=== PATIENT | female | born 1995 | race African-American/Black ===

== ENCOUNTER 2016-04-30 15:18 | Inpatient (IN) | payer OTHER, MEDICAID ==
[2016-04-30 17:57] LABS: Hematocrit 33 % (35-47); Hemoglobin 10.5 g/dl (12.0-16.0); Mean Corpuscular HGB Conc 32 g/dl (31-36); Mean Corpuscular Hemoglobin 25 pg (27-31); Mean Corpuscular Volume 78 fL (80-97); Mean Platelet Volume 9 um3 (7.4-10.4); Red Blood Count 4.27 10^6/ul (4.0-5.4); Red Cell Distribution Width 16 % (10.5-15); White Blood Count 10.1 10^3/ul (3.5-10.8)
[2016-04-30 18:08] LABS: Albumin 3.7 g/dL (3.2-5.2); BUN/Creatinine Ratio 8.7 (8-20); Calcium 9.7 mg/dL (8.6-10.3); EGFR African American 225.1 (>60); Globulin 3.1 g/dL (2-4); Potassium 3.5 mmol/L (3.5-5.0); Total Bilirubin 0.5 mg/dL (0.2-1.0); Total Protein 6.8 g/dL (6.4-8.9); Uric Acid 4.2 mg/dL (2.3-6.6)
[2016-04-30] MEDS ORDERED: Dinoprostone* 10 MG VAG.SUPP VAGINAL ONE (20:57)
[2016-04-30] MEDS: RANITIDINE 150 MG PO SCH (21:40)
[2016-05-01] MEDS ORDERED: Oxytocin in LR* 20 UNITS/1,000 ML BAG IVPB SCH (11:00)
[2016-05-01] MEDS ORDERED: OBEPIDURAL* 250 ML ONE (18:25)
[2016-05-01] MEDS ORDERED: Sodium Citrate/Citric Acid* 15 ML UDC PO PRN (19:09)
[2016-05-01] MEDS ORDERED: Phenylephrine IV* 40 MCG/ML 10 ML SYRINGE IV PUSH PRN ×2 (19:09)
[2016-05-01] MEDS ORDERED: Famotidine TAB* 20 MG PO PRN (19:09)
[2016-05-01] MEDS ORDERED: OBEPIDURAL* 250 ML EPIDURAL SCH (20:00)
[2016-05-01] MEDS: Famotidine TAB* 20 MG PO SCH (20:37)
[2016-05-01] MEDS ORDERED: Ondansetron INJ* 2 MG/ML VIAL ONE (21:41)
[2016-05-01] MEDS ORDERED: Ondansetron INJ* 2 MG/ML VIAL IV ONE (21:43)
[2016-05-02] MEDS ORDERED: Dibucaine 1% 28.35 GM TUBE PR PRN (00:37)
[2016-05-02] MEDS: Ibuprofen TAB* 600 MG PO PRN ×4 (03:24→22:16)
[2016-05-02] MEDS: Witch Hazel PAD* JAR TOPICAL PRN (03:24)
[2016-05-02] MEDS: Acetaminophen TAB* 325 MG PO PRN ×2 (07:26→14:58)
[2016-05-02] MEDS: Docusate CAP* 100 MG PO SCH ×3 (09:34→20:32)
[2016-05-02] MEDS: Famotidine TAB* 20 MG PO SCH ×2 (20:32)
[2016-05-03] MEDS: Acetaminophen TAB* 325 MG PO PRN ×2 (04:03→08:40)
[2016-05-03] MEDS: Ibuprofen TAB* 600 MG PO PRN ×3 (04:04→22:14)
[2016-05-03 08:20] LABS: Hematocrit 27 % (35-47); Hemoglobin 8.5 g/dl (12.0-16.0); Mean Corpuscular HGB Conc 32 g/dl (31-36); Mean Corpuscular Hemoglobin 25 pg (27-31); Mean Corpuscular Volume 77 fL (80-97); Mean Platelet Volume 8 um3 (7.4-10.4); Red Blood Count 3.42 10^6/ul (4.0-5.4); Red Cell Distribution Width 16 % (10.5-15); White Blood Count 12.3 10^3/ul (3.5-10.8)
[2016-05-03] MEDS: Docusate CAP* 100 MG PO SCH ×3 (08:40→22:13)
[2016-05-03] MEDS: Ferrous Gluconate TAB* 324 MG TAB PO SCH ×2 (11:21→22:13)
[2016-05-03] MEDS: Famotidine TAB* 20 MG PO SCH ×2 (11:22→22:14)
[2016-05-03] MEDS: RANITIDINE 150 MG PO SCH (21:01)
[2016-05-03] MEDS: Witch Hazel PAD* JAR TOPICAL PRN (22:13)
[2016-05-04] MEDS: Acetaminophen TAB* 325 MG PO PRN (03:19)
[2016-05-04] MEDS: Ibuprofen TAB* 600 MG PO PRN ×2 (06:45→13:59)
[2016-05-04] MEDS: Docusate CAP* 100 MG PO SCH ×2 (09:34→13:58)
[2016-05-04] MEDS: Famotidine TAB* 20 MG PO SCH (09:34)
[2016-05-04] MEDS: Ferrous Gluconate TAB* 324 MG TAB PO SCH (09:34)
[2016-05-04 10:05] VITALS: BP 157/56
[2016-05-04] MEDS: Witch Hazel PAD* JAR TOPICAL PRN (14:13)
== END 2016-05-04 14:50 | disposition home or self-care (01) | DRG 560 ==
LOC: MCHOBOUT 15:18 → MCHOB 16:25
PROVIDERS: ADMIT Midwife; ATTEND Midwife
PROC: 10E0XZZ Delivery of Products of Conception, External Approach (ICD-10-PCS; principal; 2016-05-02)
PROC: 3E033VJ Introduction of Other Hormone into Peripheral Vein, Percutaneous Approach (ICD-10-PCS; 2016-05-02)
PROC: 0HQ9XZZ Repair Perineum Skin, External Approach (ICD-10-PCS; 2016-05-02)
PROC: 10907ZC Drainage of Amniotic Fluid, Therapeutic from Products of Conception, Via Natural or Artificial Opening (ICD-10-PCS; 2016-05-02)
DX: O48.0 Post-term pregnancy (principal); O99.344 Other mental disorders complicating childbirth; D64.9 Anemia, unspecified; Z3A.41 41 weeks gestation of pregnancy; O70.0 First degree perineal laceration during delivery; O90.81 Anemia of the puerperium; O13.4 Gestational [pregnancy-induced] hypertension without significant proteinuria, complicating childbirth; Z37.0 Single live birth
CPT/HCPCS: 36415; 80053; 81002; 84550; 85025; 86850; 86900; 86901; A9270-GY; J2405

== ENCOUNTER 2016-08-01 15:09 | Emergency (ER) | payer MEDICAID, OTHER ==
[2016-08-01 15:31] VITALS: BP 129/67
--- NOTE | 2016-08-01 15:51 | UC ---
Pediatric Resp HPI - History Of Current Complaint Chief Complaint: UCRespiratory Stated Complaint: COUGH Time Seen by Provider: 08/01/16 15:49 - Allergies/Home Medications Allergies/Adverse Reactions: Allergies Allergy/AdvReac Type Severity Reaction Status Date / Time oranges Allergy Swelling Uncoded 04/30/16 17:14 Of Face,Lips,& Throat Past Medical History Respiratory History: No: Asthma - Family History Family History: Heroine dependency Physical Exam Vital Signs: Initial Vital Signs Temp 98.1 F 08/01/16 15:26 Pulse 89 08/01/16 15:26 Resp 18 08/01/16 15:26 BP 129/67 08/01/16 15:26 Pulse Ox 100 08/01/16 15:26
[2016-08-01] MEDS ORDERED: Ibuprofen TAB* 600 MG PO ONE (15:58)
--- NOTE | 2016-08-01 16:05 | UC ---
Respiratory Complaint HPI - HPI Summary HPI Summary: cough and sore throat chest hurts to cough - History of Current Complaint Hx Obtained From: Patient Hx Last Menstrual Period: 07/25/16 miscarriage ?: No Onset/Duration: Gradual Onset, Lasting Days Timing: Constant Severity Initially: Moderate Severity Currently: Moderate Pain Intensity: 5 Pain Scale Used: 0-10 Numeric Character: Cough: Nonproductive Aggravating Factors: Nothing Alleviating Factors: Nothing Associated Signs And Symptoms: Positive: Pleuritic Chest Pain, URI <Edelmira Cruz - Last Filed: 08/01/16 16:49> <Qian Soto - Last Filed: 08/01/16 17:33> - History of Current Complaint Chief Complaint: UCRespiratory Stated Complaint: COUGH Time Seen by Provider: 08/01/16 15:49 - Allergies/Home Medications Allergies/Adverse Reactions: Allergies Allergy/AdvReac Type Severity Reaction Status Date / Time oranges Allergy Swelling Uncoded 04/30/16 17:14 Of Face,Lips,& Throat PMH/Surg Hx/FS Hx/Imm Hx Previously Healthy: No Cardiovascular History Of: Reports: Cardiac Disorders - "Murmur in childhood" Respiratory History Of: Denies: Asthma Psychological History Of: Reports: Anxiety, Depression, Bipolar Disorder - Not currently taking medications Other History Of: Negative For: Anticoagulant Therapy - Surgical History Surgical History: None - Family History Known Family History: Positive: Unknown - pt denies knowledge of family medical history Family History: Heroine dependency - Social History Occupation: Employed Full-time Lives: With Family Alcohol Use: Weekly Substance Use Type: None Smoking Status (MU): Heavy Every Day Tobacco Smoker Type: Cigarettes Have You Smoked in the Last Year: Yes Household Exposure Type: Cigarettes Cessation Counseling: Counseled 3+Min - 10 Min - Immunization History Most Recent Influenza Vaccination: none this year Most Recent Tetanus Shot: 04/2015 Most Recent Pneumonia Vaccination: never <Edelmira Cruz - Last Filed: 08/01/16 16:49> Review of Systems Constitutional: Negative Skin: Negative Eyes: Negative ENT: Sore Throat Respiratory: Cough Cardiovascular: Negative Gastrointestinal: Negative Genitourinary: Negative Motor: Negative Neurovascular: Negative Musculoskeletal: Negative Neurological: Negative Psychological: Negative All Other Systems Reviewed And Are Negative: Yes <Edelmira Cruz - Last Filed: 08/01/16 16:49> Physical Exam Triage Information Reviewed: Yes Appearance: Well-Appearing, No Pain Distress, Well-Nourished Vital Signs: Initial Vital Signs Temp 98.1 F 08/01/16 15:26 Pulse 89 08/01/16 15:26 Resp 18 08/01/16 15:26 BP 129/67 08/01/16 15:26 Pulse Ox 100 08/01/16 15:26 Vital Signs Reviewed: Yes Eye Exam: Normal Eyes: Positive: Conjunctiva Clear ENT Exam: Normal ENT: Positive: Normal ENT inspection, Hearing grossly normal, Pharyngeal erythema, TMs normal. Negative: Nasal congestion, Nasal drainage, Tonsillar swelling, Tonsillar exudate, Trismus, Muffled/hoarse voice Dental Exam: Normal Neck exam: Normal Neck: Positive: Supple, Nontender, No Lymphadenopathy Respiratory Exam: Normal Respiratory: Positive: Chest non-tender, Lungs clear, Normal breath sounds, No respiratory distress, No accessory muscle use Cardiovascular Exam: Normal Cardiovascular: Positive: RRR, No Murmur, Pulses Normal, Brisk Capillary Refill Musculoskeletal Exam: Normal Musculoskeletal: Positive: Strength Intact, ROM Intact, No Edema Neurological Exam: Normal Neurological: Positive: Alert, Muscle Tone Normal Psychological Exam: Normal Skin Exam: Normal <Edelmira Cruz - Last Filed: 08/01/16 16:49> Vital Signs: Initial Vital Signs Temp 98.1 F 08/01/16 15:26 Pulse 89 08/01/16 15:26 Resp 18 08/01/16 15:26 BP 129/67 08/01/16 15:26 Pulse Ox 100 08/01/16 15:26 <Qian Soto - Last Filed: 08/01/16 17:33> Diagnostic Evaluation - Laboratory O2 Sat by Pulse Oximetry: 100 Diagnostic Studies Comment: RST (-) <Edelmira Cruz - Last Filed: 08/01/16 16:49> Respiratory Course/Dx - Course Course Of Treatment: albuterol, prednisone, zithromax, smoking cesation information, education and support, referral for pcp follow up - Differential Dx/Diagnosis Differential Diagnosis/HQI/PQRI: Bronchitis, Influenza, Laryngitis, Lower Resp Infection, Sinusitis Provider Diagnoses: Acute exacerbation of asthma, bronchititis, nicotine dependant <Edelmira Cruz - Last Filed: 08/01/16 16:49> Discharge <Edelmira Cruz - Last Filed: 08/01/16 16:49> <Qian Soto - Last Filed: 08/01/16 17:33> - Discharge Plan Condition: Stable Disposition: HOME Prescriptions: Albuterol HFA INHALER* [Ventolin HFA Inhaler*] 2 puff INH Q4H PRN #1 mdi PRN Reason: cough/chest tightness Azithromycin TAB* [Zithromax TAB (Z-JUAN A) 250 mg #6 tabs] 2 tab PO .TODAY, THEN 1 DAILY #1 juan a Spacer/Aerosol-Holding Chamber [Aerochamber Plus] 1 mis XX SEE INSTRUCTIONS #1 mis predniSONE TAB* [Deltasone TAB*] 10 mg PO DAILY #20 tab Patient Education Materials: How to Stop Smoking (ED), Acute Bronchitis (ED), Bronchospasm (ED) Forms: *Work Release Referrals: [facility] – [place] PH[facility]IAN REFERRAL [Outside] - 1 Week No Primary Care Phys,NOPCP [Primary Care Provider] - Attestation Statement User Type: Provider - I was available for consult. This patient was seen by the ELIDIA. The patient was not presented to, seen by, or examined by me. - Al <Qian Soto - Last Filed: 08/01/16 17:33>
== END 2016-08-01 16:43 | disposition home or self-care (01) ==
LOC: UCEAST 15:09
DX: J45.901 Unspecified asthma with (acute) exacerbation (principal); F17.210 Nicotine dependence, cigarettes, uncomplicated; J20.9 Acute bronchitis, unspecified
CPT/HCPCS: 87651; 99212; A9270-GY; G0463

== ENCOUNTER 2017-01-02 19:35 | Emergency (ER) | payer OTHER ==
[2017-01-02 19:45] VITALS: BP 144/66
[2017-01-02] MEDS ORDERED: Albuterol/Ipratropium NEB.SOL* Albuterol 2.5 MG/Ipratropium 0.5 MG 3 ML INH ONE (19:51)
[2017-01-02] MEDS ORDERED: Amoxicillin/Clavulanate TAB* 875 MG PO ONE (19:51)
[2017-01-02] MEDS ORDERED: GuaiFENesin DM* 5 ML UDC PO ONE (19:52)
[2017-01-02] MEDS ORDERED: predniSONE TAB* 20 MG PO ONE (19:52)
[2017-01-02] MEDS ORDERED: guaiFENesin LIQ* 100 MG/5 ML UDC PO ONE (20:06)
--- NOTE | 2017-01-06 16:37 | UC ---
Respiratory Complaint HPI - HPI Summary HPI Summary: 21 year old female presents with cough, chest congestion and post nasal drip. - History of Current Complaint Chief Complaint: UCRespiratory Stated Complaint: URI Time Seen by Provider: 01/02/17 19:47 Hx Obtained From: Patient Hx Last Menstrual Period: no regular period Onset/Duration: Sudden Onset Severity Initially: Moderate Severity Currently: Moderate Pain Intensity: 2 Pain Scale Used: Adult Non Verbal - Allergies/Home Medications Allergies/Adverse Reactions: Allergies Allergy/AdvReac Type Severity Reaction Status Date / Time oranges Allergy Swelling Uncoded 04/30/16 17:14 Of Face,Lips,& Throat Home Medications: Home Medications Medroxyprogesterone Acetate (C [Depo-Provera Contraceptiv] 150 mg IM 01/02/17 [ History] PMH/Surg Hx/FS Hx/Imm Hx Previously Healthy: Yes Other History Of: Negative For: Anticoagulant Therapy - Surgical History Surgical History: None - Family History Known Family History: Positive: Unknown - pt denies knowledge of family medical history Family History: Heroine dependency - Social History Alcohol Use: Weekly Substance Use Type: None Smoking Status (MU): Heavy Every Day Tobacco Smoker Type: Cigarettes Have You Smoked in the Last Year: Yes Household Exposure Type: Cigarettes - Immunization History Most Recent Influenza Vaccination: none this year Most Recent Tetanus Shot: 04/2015 Most Recent Pneumonia Vaccination: never Review of Systems Constitutional: Negative Skin: Negative Eyes: Negative ENT: Sore Throat, Nasal Discharge, Sinus Congestion, Sinus Pain/Tenderness Respiratory: Negative Cardiovascular: Negative Gastrointestinal: Negative Genitourinary: Negative Motor: Negative Neurovascular: Negative Musculoskeletal: Negative Neurological: Negative Psychological: Negative All Other Systems Reviewed And Are Negative: Yes Physical Exam Triage Information Reviewed: Yes Vital Signs: Initial Vital Signs Temp 37.0 C 01/02/17 19:42 Pulse 89 01/02/17 19:42 Resp 18 01/02/17 19:42 BP 144/66 01/02/17 19:42 Pulse Ox 100 01/02/17 19:42 Vital Signs Reviewed: Yes Eye Exam: Normal ENT: Positive: Pharyngeal erythema, Nasal congestion, Nasal drainage Dental Exam: Normal Neck exam: Normal Neck: Positive: 1 Respiratory Exam: Normal Cardiovascular Exam: Normal Abdominal Exam: Normal Musculoskeletal Exam: Normal Neurological Exam: Normal Psychological Exam: Normal Skin Exam: Normal UC Diagnostic Evaluation - Laboratory O2 Sat by Pulse Oximetry: 100 Respiratory Course/Dx - Differential Dx/Diagnosis Provider Diagnoses: bronchitis. sinus congestion. post nasal drip Discharge - Discharge Plan Condition: Stable Disposition: HOME Prescriptions: Albuterol HFA INHALER* [Ventolin HFA Inhaler*] 1 puff INH Q6H PRN #1 mdi PRN Reason: Wheezing Amoxicillin/Clavulanate TAB* [Augmentin TAB 875*] 875 mg PO BID #20 tab Methylprednisolone [Medrol Dosepak 4 MG*] 4 mg PO .SEE JUAN A INSTRUCTION #21 tab guaiFENesin/CODIEN 100MG-10MG* [Robitussin AC 100Mg-10Mg*] 5 ml PO Q8H PRN #120 ml MDD 15 ml PRN Reason: Cough Patient Education Materials: Acute Cough (ED) Forms: *Work Release Referrals: No Primary Care Phys,NOPCP [Primary Care Provider] -
== END 2017-01-02 21:05 | disposition home or self-care (01) ==
LOC: UCEAST 19:35
DX: J40 Bronchitis, not specified as acute or chronic (principal); R09.81 Nasal congestion; R09.82 Postnasal drip; F17.210 Nicotine dependence, cigarettes, uncomplicated
CPT/HCPCS: 99213; A9270-GY; G0463; J7512

== ENCOUNTER 2017-03-05 16:47 | Emergency (ER) | payer MEDICAID, OTHER ==
[2017-03-05] MEDS ORDERED: Acetaminophen TAB* 325 MG PO ONE (17:12)
--- NOTE | 2017-03-05 19:03 | RAD ---
INDICATION: Left hand injury COMPARISON: None TECHNIQUE: AP, lateral, and oblique views were obtained. FINDINGS: The bony structures, joint spaces, and soft tissues are normal for age. IMPRESSION: NEGATIVE EXAMINATION .
--- NOTE | 2017-03-05 19:04 | RAD ---
INDICATION: Left wrist injury COMPARISON: None TECHNIQUE: AP, lateral, and oblique views were obtained. FINDINGS: The bony structures, joint spaces, and soft tissues are normal for age. IMPRESSION: NEGATIVE EXAMINATION.
[2017-03-05 19:25] VITALS: BP 122/73
--- NOTE | 2017-03-05 19:55 | ED ---
Luis Angel Villagomez Stephanie, scribed for Roger Epps MD on 03/05/17 at 1719 . Complex/Multi-Sys Presentation - HPI Summary HPI Summary: Pt is a 21 y/o F presenting to the ED with c/o hand pain, head pain and abdominal cramping. The pain in her hand and back of head began post-fall. The pt reports her abdominal pain began about 1 week ago and there was an incident where she released one large clump of dark red blood. Pt denies numbness and weakness in her thumb. - History Of Current Complaint Chief Complaint: EDExtremityUpper Time Seen by Provider: 03/05/17 17:07 Hx Obtained From: Patient Onset/Duration: Lasting Weeks - 1, Still Present Associated Signs And Symptoms: Positive: Abdominal Pain, Other - head and hand pain. - Allergies/Home Medications Allergies/Adverse Reactions: Allergies Allergy/AdvReac Type Severity Reaction Status Date / Time oranges Allergy Swelling Uncoded 04/30/16 17:14 Of Face,Lips,& Throat PMH/Surg Hx/FS Hx/Imm Hx Endocrine/Hematology History: Denies: Hx Anticoagulant Therapy, Hx Blood Disorders Respiratory History: Denies: Hx Asthma History: Reports: Other Problems/Disorders - chlamydia Sensory History: Reports: Hx Contacts or Glasses Opthamlomology History: Reports: Hx Contacts or Glasses Psychiatric History: Reports: Hx Anxiety, Hx Attention Deficit Hyperactivity Disorder, Hx Depression, Hx Bipolar Disorder - Not currently taking medications Denies: Hx Eating Disorder, Hx of Violent Episodes Against Others - Immunization History Date of Tetanus Vaccine: Up to Date Infectious Disease History: No Infectious Disease History: Denies: History Other Infectious Disease, Traveled Outside the [place] in Last 30 Days - Family History Known Family History: Positive: Unknown - pt denies knowledge of family medical history Family History: Heroine dependency - Social History Alcohol Use: Weekly Hx Substance Use: No Substance Use Type: Reports: None Hx Tobacco Use: Yes Smoking Status (MU): Heavy Every Day Tobacco Smoker Type: Cigarettes Have You Smoked in the Last Year: Yes Review of Systems Negative: Fever Positive: Abdominal Pain Positive: Other - head and hand pain All Other Systems Reviewed And Are Negative: Yes Physical Exam - Summary Physical Exam Summary: Appearance: Well appearing, no pain distress Skin: warm, dry, reflects adequate perfusion Head/face: normal Eyes: EOMI, JOHNNY ENT: normal Neck: supple, Tenderness in R paracervicle muscle Respiratory: CTA, breath sounds present Cardiovascular: RRR, pulses symmetrical Abdomen: non-tender, soft Bowel: present Musculoskeletal: normal, strength/ROM intact Neuro: normal, sensory motor intact, A&Ox3 Extremity:Pain without swelling at the base of the left thumb. Nml intrinsic function of thumb Triage Information Reviewed: Yes Vital Signs On Initial Exam: Initial Vitals Temp Pulse Resp BP Pulse Ox 97.4 F 95 16 146/78 100 03/05/17 16:52 03/05/17 16:52 03/05/17 16:52 03/05/17 16:52 03/05/17 16:52 Vital Signs Reviewed: Yes Procedures - Procedure Summary Procedure Summary: Splint note: A pre-made velcro thumb spica splint was applied by me. Extremity neurovascularly intact. Tolerated well without complications. Diagnostics - Vital Signs Vital Signs Temp Pulse Resp BP Pulse Ox 03/05/17 16:52 97.4 F 95 16 146/78 100 - Laboratory Lab Results: Lab Results 03/05/17 Range/Units 17:20 Beta HCG, Quant < 0.60 mIU/mL Lab Statement: Any lab studies that have been ordered have been reviewed, and results considered in the medical decision making process. - Radiology wrist XRay Xray Interpretation: No Acute Changes - NEGATIVE EXAMINATION Radiology Interpretation Completed By: Radiologist XRay hand Radiology Interpretation Completed By: Radiologist - NEGATIVE EXAMINATION Complex Multi-Symp Course/Dx Course Of Treatment: neg. Xrays neg. Splint applied by me. - Diagnoses Provider Diagnoses: Wrist sprain, Hand sprain Discharge - Discharge Plan Condition: Good Disposition: HOME Patient Education Materials: Hand Sprain (ED) Referrals: No Primary Care Phys,NOPCP [Primary Care Provider] - Additional Instructions: Ice, elevate. Splint for comfort. Ibuprofen for discomfort. You are NOT . Primary care referral form given. Have rechecked if still painful in 1wk. The documentation as recorded by the Luis Angel mcfarlane Stephanie accurately reflects the service I personally performed and the decisions made by me, Roger Epps MD.
== END 2017-03-05 19:25 | disposition home or self-care (01) ==
LOC: ED 16:47
DX: S63.92XA Sprain of unspecified part of left wrist and hand, initial encounter (principal); W19.XXXA Unspecified fall, initial encounter; Y93.9 Activity, unspecified; Y92.9 Unspecified place or not applicable; Y99.9 Unspecified external cause status; F17.210 Nicotine dependence, cigarettes, uncomplicated
CPT/HCPCS: 36415; 84702; 99282; A9270-GY

== ENCOUNTER 2018-05-26 08:20 | Inpatient (IN) | payer OTHER ==
[2018-05-26] MEDS ORDERED: Buffered Lidocaine 1% SYRIN* 1 ML/SYRINGE INTRADERM ONE (09:16)
[2018-05-26] MEDS ORDERED: Lactated Ringers 1000 ML Bag* 1,000 ML IV ONE (09:16)
--- NOTE | 2018-05-26 09:27 | HP ---
General Information - Reason for Visit G3P 1 at 39 wks for induction due to GDM - General Information Maternal Age: 22 Grav: 3 Para: 1 SAB: 0 IEA: 1 Estimated Due Date: 05/29/18 Determined By: LMP Gestational Age in Weeks/Days: 39 w 4 d Maternal Blood Type and Rh: A Positive - Results this Serology/RPR Result: Non-Reactive Rubella Result: Immune HBsAg Result: Negative HIV Result: Negative GBS Culture Result: Negative Past Medical History Delivery History: Hx Uncomplicated Vaginal Delivery Past Medical History Comment: ADD, Bipolar disorders, no meds at present Past Surgical History Comment: I&D of pilonidal cyst 07/2017 under local Pertinent Family History: See Records - Antepartal Records Antepartal Records: Reviewed, Complicated by: - GDM, questionable control Review of Systems Constitutional: Comfortable CV Complaint: No Respiratory: Shortness of Breath: No Gastrointestinal: Soft Stool Genitourinary: No Leaking Fluid Musculoskeletal: Back Pain Neurological: Headache Movement: Normal Exam Allergies/Adverse Reactions: Allergies oranges Allergy (Intermediate, Uncoded 05/16/18 13:48) Swelling Of Face,Lips,& Throat - Measurements Height: 5 ft 6 in Weight: 257 lb Weight in lbs: [id number] Body Mass Index (BMI): 41.4 Pre- Weight: 256 lb 0.012 oz Weight Gained This : 0.999 lbs and 0.004 ozs - Exam Breast: - - soft, no masses Extremities: No Edema Heart: Normal Rhythm/Heart Sounds HEENT: No Significant Findings Lungs: Clear Bilaterally Reflexes: DTR 2+ Thyroid: No Thyromegaly - Abdominal Exam Abdomen Exam: Non-Tender - Ultrasound/Biophysical Profile Ultrasound Status: Not Done Targeted Exam Findings Estimated Weight: 8lbs Cervical Exam: 3cm Effacement: 80% Station: -1 Presenting Part: Vertex Membrane Status: Bulging EFM Findings - External Monitor Findings Baseline Heart Rate: 140 External Monitor Findings: Accelerations Present, No Pattern of Variable or Late Decelerations, Variability Moderate, Baseline Stable External Monitor Findings Comment: category 1 Contractions: Irregular, Mild Assessment/Plan - Assessment for induction - Obstetrical Risk Factors Obstetrical Risk Factors: Gestational Diabetes - Plan Plan: Induction, Admit - Anticipate Vaginal Delivery Plan Comment: AROM at 0904--clear fluid Will observe, augment with pitocin prn - Date/Time of Admission Date of Admission: 05/26/18 Time of Admission: 09:05
[2018-05-26] MEDS ORDERED: Lactated Ringers 1000 ML Bag* 1,000 ML IV SCH ×2 (10:00→19:00)
--- NOTE | 2018-05-26 12:03 | PN ---
Progress Note - Progress Note Date of Service: 05/26/18 Note: Uncomfortable, tee every 3-4 minutes Cervix: 4 cm/90%, vtx -1 Would like to try nitrous oxide
[2018-05-26] MEDS ORDERED: Ondansetron ODT TAB* 4 MG SL PRN (13:19)
--- NOTE | 2018-05-26 14:37 | PN ---
Progress Note - Progress Note Date of Service: 05/26/18 Note: using nitrous with some relief Cervix: 5cm/90%, vtx 0 Will get back in tub. Does want epidural
--- NOTE | 2018-05-26 17:20 | PN ---
Progress Note - Progress Note Date of Service: 05/26/18 Note: Requested epidural as nitrous makes her nauseated. Nurses have been unable to start IV, awaiting vascular access team Cervix: 7cm/100%, vtx 0
[2018-05-26] MEDS ORDERED: Promethazine INJ(RESTRICTED)* 25 MG/ML 1 ML VIAL ONE (17:36)
[2018-05-26] MEDS ORDERED: Promethazine INJ(RESTRICTED)* 25 MG/ML 1 ML VIAL IM ONE (17:40)
[2018-05-26 18:05] LABS: ABS Basophils 0 10^3/ul (0-0.2); ABS Eosinophils 0 10^3/ul (0-0.6); ABS Lymphocytes 1.2 10^3/ul (1.0-4.8); ABS Monocytes 0.7 10^3/ul (0-0.8); ABS Neutrophils 14.8 10^3/ul (1.5-7.7); ABS Nucleated RBC 0 10^3/ul; Eosinophil % 0.1 %; Hematocrit 37 % (33-41); Hemoglobin 12.1 g/dL (12.0-16.0); Lymphocyte % 7.1 %; Mean Corpuscular HGB Conc 33 g/dL (31-36); Mean Corpuscular Hemoglobin 25 pg (27-31); Mean Corpuscular Volume 77 fL (80-97); Mean Platelet Volume 8.4 fL (7.4-10.4); Nucleated Red Blood Cells % 0; Platelet Count 340 10^3/uL (150-450); Red Cell Distribution Width 16 % (10.5-15); White Blood Count 16.6 10^3/uL (3.5-10.8)
[2018-05-26] MEDS ORDERED: Oxytocin in LR* 20 UNITS/1,000 ML BAG IVPB ONE (18:27)
[2018-05-26] MEDS ORDERED: Glycerin ADULT SUPP PR PRN (18:54)
[2018-05-26] MEDS ORDERED: Acetaminophen TAB* 325 MG PO PRN (18:54)
[2018-05-26] MEDS ORDERED: Witch Hazel PAD* JAR TOPICAL PRN (18:54)
[2018-05-26] MEDS ORDERED: Dibucaine 1% 28.35 GM TUBE PR PRN (18:54)
[2018-05-26] MEDS ORDERED: Oxytocin in LR* 20 UNITS/1,000 ML BAG IVPB SCH (19:00)
--- NOTE | 2018-05-26 19:03 | PROCNOTE ---
[facility] OB: Delivery Note - Delivery A Date of : 05/26/18 Time of : 18:24 [place] Sex: Male Weight at : 7 lb 5 oz Score 1 Minute: 9 Score 5 Minutes: 9 Gestational Age in Weeks and Days at Delivery: 39 Weeks and 4 Days Delivery Method: Spontaneous Vaginal Labor: Induced Did Patient attempt ?: N/A, No Previous Amniotic Fluid: Clear Estimated Blood Loss: 300 Anesthesia/Analgesia: Nitrous-Labor Delivered By: Monique Hernandez - Nursery Level of Nursery: Regular/Bedside - Perineum Perineal Injury: None/Intact - Additional Delivery Notes Additional Delivery Notes: Pressure with urge to push at 1815, ant lip reduced. Pushed 6 min. SVB LMC, OA over intact perineum. Infant pink with stimulation, vigorous cry. Placenta Nathan. Iv with pitocin running, FF with massage. EBL 300cc. Mother and baby in good condition.
[2018-05-26] MEDS ORDERED: Ondansetron INJ* 2 MG/ML VIAL IV PRN (21:27)
[2018-05-26] MEDS: Docusate CAP* 100 MG PO SCH (21:36)
[2018-05-26] MEDS: Ibuprofen TAB* 600 MG PO PRN (21:36)
[2018-05-27 07:03] LABS: Hematocrit 30 % (33-41); Hemoglobin 9.8 g/dL (12.0-16.0); Mean Corpuscular HGB Conc 33 g/dL (31-36); Mean Corpuscular Hemoglobin 25 pg (27-31); Mean Corpuscular Volume 77 fL (80-97); Mean Platelet Volume 8.8 fL (7.4-10.4); Platelet Count 265 10^3/uL (150-450); Red Blood Count 3.89 10^6 /uL (3.70-4.87); Red Cell Distribution Width 15 % (10.5-15); White Blood Count 14.2 10^3/uL (3.5-10.8)
[2018-05-27] MEDS: Ferrous Gluconate TAB* 324 MG TAB PO SCH ×2 (08:28→20:28)
[2018-05-27] MEDS: Docusate CAP* 100 MG PO SCH ×2 (08:28→20:29)
[2018-05-27] MEDS: Ibuprofen TAB* 600 MG PO PRN ×2 (08:28→20:29)
[2018-05-27 22:26] VITALS: BP 137/53
[2018-05-28] MEDS: Ferrous Gluconate TAB* 324 MG TAB PO SCH (08:06)
[2018-05-28] MEDS: Ibuprofen TAB* 600 MG PO PRN (08:06)
[2018-05-28] MEDS: Docusate CAP* 100 MG PO SCH (08:06)
== END 2018-05-28 10:49 | disposition home or self-care (01) | DRG 560 ==
LOC: MCHOBOUT 08:20 → MCHOB 09:16
PROVIDERS: ADMIT Midwife; ATTEND Midwife
PROC: 10E0XZZ Delivery of Products of Conception, External Approach (ICD-10-PCS; principal; 2018-05-26)
PROC: 3E033VJ Introduction of Other Hormone into Peripheral Vein, Percutaneous Approach (ICD-10-PCS; 2018-05-26)
PROC: 10907ZC Drainage of Amniotic Fluid, Therapeutic from Products of Conception, Via Natural or Artificial Opening (ICD-10-PCS; 2018-05-26)
DX: O24.429 Gestational diabetes mellitus in childbirth, unspecified control (principal); Z37.0 Single live birth; O99.344 Other mental disorders complicating childbirth; F31.9 Bipolar disorder, unspecified; F90.9 Attention-deficit hyperactivity disorder, unspecified type; Z3A.39 39 weeks gestation of pregnancy
CPT/HCPCS: 36415; 85025; 85027; A9270-GY; J2550

== ENCOUNTER 2018-10-06 10:25 | Emergency (ER) | payer OTHER ==
[2018-10-06 11:03] VITALS: BP 144/83
--- NOTE | 2018-10-06 11:04 | UC ---
Throat Pain/Nasal Tan HPI - HPI Summary HPI Summary: 23 yo female presents with sore throat. She tells me that for the last 2 days she has had a sore throat with tonsil swelling. Pain is preventing her from eating, but she is drinking liquids and soup without difficulty. She also has pain on her tongue and has noticed white/greenish coatings and thinks she has thrush as she has had this in the past. She has been taking ibuprofen for her symptoms with mild relief. She also thinks she may be as she was due for her period on 09/18/18 and missed it. She has been sexually active without condoms or other control methods. Denies fever, chills, sinus symptoms, cough, SOB, chest pain, abdominal pain. No difficulty breathing. No vaginal bleeding or discharge. - History of Current Complaint Chief Complaint: UCGeneralIllness Stated Complaint: SORE THROAT Time Seen by Provider: 10/06/18 11:04 Hx Obtained From: Patient Hx Last Menstrual Period: 08/19/18 Onset/Duration: Gradual Onset Severity: Severe Pain Intensity: 9 Pain Scale Used: 0-10 Numeric - Allergies/Home Medications Allergies/Adverse Reactions: Allergies Allergy/AdvReac Type Severity Reaction Status Date / Time orange juice Allergy Intermediate Swelling Verified 10/06/18 11:04 Of Face,Lips,& Throat PMH/Surg Hx/FS Hx/Imm Hx - Additional Past Medical History Additional PMH: Gestational diabetes Other History Of: Negative For: Anticoagulant Therapy - Surgical History Surgical History: None - Family History Known Family History: Positive: Unknown - pt denies knowledge of family medical history Family History: Heroine dependency - Social History Lives: With Family Alcohol Use: None Substance Use Type: None Substance Use Comment - Amount & Last Used: +02/2018 per records Smoking Status (MU): Former Smoker Type: Cigarettes Amount Used/How Often: 1cig /week Have You Smoked in the Last Year: Yes Household Exposure Type: Cigarettes - Immunization History Most Recent Influenza Vaccination: 01/10/18 Most Recent Tetanus Shot: 04/2015 Most Recent Pneumonia Vaccination: never Review of Systems All Other Systems Reviewed And Are Negative: Yes Constitutional: Positive: Negative Skin: Positive: Negative Eyes: Positive: Negative ENT: Positive: Sore Throat Respiratory: Positive: Negative Cardiovascular: Positive: Negative Gastrointestinal: Positive: Negative Genitourinary: Positive: Negative Neurovascular: Positive: Negative Neurological: Positive: Negative Psychological: Positive: Negative Physical Exam - Summary Physical Exam Summary: GENERAL: NAD. WDWN. No pain distress. SKIN: No rashes, sores, lesions, or open wounds. HEENT: Head: AT/NC Eyes: Conjunctiva clear without inflammation or discharge. Ears: Hearing grossly normal. TMs intact, no bulging, erythema, or edema. Nose: Nasal mucosa pink and moist. NTTP maxillary and frontal sinus. Throat: Posterior oropharynx moderate erythema and 3+ to 4+ tonsillar enlargement. Large amount of white exudates b/l tonsils. Uvula midline and without soft palate edema or evidence of peritonsillar abscess. White/greenish coating on tongue. NECK: Supple. Nontender. No lymphadenopathy. CHEST: CTAB. No r/r/w. No accessory muscle use. Breathing comfortably and in no distress. CV: RRR. Without m/r/g. Pulses intact. Cap refill <2seconds NEURO: Alert. PSYCH: Age appropriate behavior. Triage Information Reviewed: Yes Vital Signs: Initial Vital Signs Temp 98 F 10/06/18 10:59 Pulse 125 10/06/18 10:59 Resp 20 10/06/18 10:59 BP 144/83 10/06/18 10:59 Pulse Ox 100 10/06/18 10:59 Laboratory Tests 10/06/18 11:24 Group A Strep Rapid Positive A Vital Signs Reviewed: Yes Throat Pain/Nasal Course/Dx - Course Course Of Treatment: POC strep positive. POC glucose 113 Urine positive. Recheck pulse 94bpm. Discussed results with pt. She states that she plans on getting an and has had one in the past. Will still hold off on giving any high risk medications if the pt were to later change her mind. Ideally would treat her with diflucan, prednisone, and amoxicillin - however given her ; diflucan is contraindicated. Toradol and NSAIDs for inflammation/tonsillitis are contraindicated in . Prednisone for her tonsillitis and anbx for her strep would likely worsen her thrush and, ideally, would like to avoid steroids in . Currently she is afebrile and recheck pulse was <100bpm. BP slightly elevated. Does not meet SIRS/Sepsis definition. Discussed case with Dr. Reyes and recommends treating with anbx and nystatin oral. She was given 1gm Ceftriaxone in the clinic. Will rx for nystatin oral and amoxicillin. Will draw for HIV and CBC given her repeat thrush. Strongly advised to monitor her symptoms and if she develops a fever, trouble breathing, worsening discomfort, inability to tolerate saliva or liquids - to call 911 or go to the ED for further treatment. May take tylenol for discomfort. Pt voiced understanding and agrees with the plan. - Differential Dx/Diagnosis Provider Diagnosis: Strep pharyngitis, Thrush, Discharge - Sign-Out/Discharge Documenting (check all that apply): Patient Departure All imaging exams completed and their final reports reviewed: No Studies - Discharge Plan Condition: Stable Disposition: HOME Prescriptions: Amoxicillin PO (*) [Amoxicillin 500 MG CAP*] 500 mg PO Q12H #20 cap Nystatin SUSPENSION* 500,000 units MT QID 7 Days #140 ml Patient Education Materials: (ED), Strep Throat (DC), Oral Candidiasis (ED) Referrals: No Primary Care Phys,NOPCP [Primary Care Provider] - Additional Instructions: If you develop a fever, unable to swallow your spit, trouble breathing, shortness of breath, chest pain, new or worsening symptoms - please go to the ER immediately. Your blood pressure was high at todays visit. Please see your primary provider within 4 weeks for recheck and re-evaluation. If your throat does not improve within 24 hours, please go to the ER for further treatment. [facility] - Billing Disposition and Condition Condition: STABLE Disposition: Home
[2018-10-06] MEDS ORDERED: Lidocaine 1% MPF ** 5 ML VIAL INJ ONE (11:38)
[2018-10-06] MEDS ORDERED: cefTRIAXone VIAL(*) 1,000 MG VIAL IM ONE (11:38)
[2018-10-06 16:26] LABS: ABS Basophils 0.1 10^3/ul (0-0.2); ABS Eosinophils 0.1 10^3/ul (0-0.6); ABS Lymphocytes 1.1 10^3/ul (1.0-4.8); ABS Monocytes 1.1 10^3/ul (0-0.8); ABS Neutrophils 16.7 10^3/ul (1.5-7.7); Eosinophil % 0.5 %; Hematocrit 40 % (35-47); Hemoglobin 13.3 g/dL (12.0-16.0); Mean Corpuscular HGB Conc 33 g/dL (31-36); Mean Corpuscular Hemoglobin 25 pg (27-31); Mean Corpuscular Volume 75 fL (80-97); Mean Platelet Volume 8.9 fL (7.4-10.4); Platelet Count 409 10^3/uL (150-450); Red Blood Count 5.43 10^6 /uL (3.70-4.87); Red Cell Distribution Width 16 % (10-15); White Blood Count 19.1 10^3/uL (3.5-10.8)
--- NOTE | 2018-10-07 07:07 | UC ---
- Progress Note Progress Note: Reviewed labs notable for negative HIV. On CBC white count noted to be 19.1. Please advise patient of her negative HIV results, and that her white count, a level of infection, is elevated. This could be due to her recent diagnosis of strep throat, but if she continues to feel ill, has persistent fevers, or worsening symptoms she should go to the emergency department or her primary care office. Course/Dx - Diagnoses Provider Diagnoses: Strep pharyngitis, Thrush, Discharge - Sign-Out/Discharge Documenting (check all that apply): Post-Discharge Follow Up All imaging exams completed and their final reports reviewed: No Studies - Discharge Plan Condition: Stable Disposition: HOME Prescriptions: Amoxicillin PO (*) [Amoxicillin 500 MG CAP*] 500 mg PO Q12H #20 cap Nystatin SUSPENSION* 500,000 units MT QID 7 Days #140 ml Patient Education Materials: (ED), Strep Throat (DC), Oral Candidiasis (ED) Referrals: No Primary Care Phys,NOPCP [Primary Care Provider] - Additional Instructions: If you develop a fever, unable to swallow your spit, trouble breathing, shortness of breath, chest pain, new or worsening symptoms - please go to the ER immediately. Your blood pressure was high at todays visit. Please see your primary provider within 4 weeks for recheck and re-evaluation. If your throat does not improve within 24 hours, please go to the ER for further treatment. [facility] - Billing Disposition and Condition Condition: STABLE Disposition: Home
== END 2018-10-06 12:41 | disposition home or self-care (01) ==
LOC: UCEAST 10:25
DX: J02.0 Streptococcal pharyngitis (principal); B37.9 Candidiasis, unspecified; Z32.01 Encounter for pregnancy test, result positive; Z87.891 Personal history of nicotine dependence
CPT/HCPCS: 36415; 81025; 85025; 87070; 87389; 87651; 96372; 99212; G0463; J0696

== ENCOUNTER 2018-10-12 14:12 | Emergency (ER) | payer OTHER ==
[2018-10-12] MEDS ORDERED: Acyclovir* 400 MG TAB PO ONE (15:14)
--- NOTE | 2018-10-12 15:15 | ED ---
Complex/Multi-Sys Presentation - HPI Summary HPI Summary: This patient is a 23 year old F presenting to [facility] with a chief complaint of worsening depression since 1 week ago. Pt has hx of depression and denies any suicidal plans. Pt was previously hospitalized for bipolar disorder, which she no longer takes medication for. She states she went to urgent care for her sore throat, where she was tested positive for . Pt states she gave vaginally 4 months ago. She is also concerned of a possible vaginal herpes outbreak as she never had this before. Burning sensation and lesions around her vagina developed 2 days ago. The patient rates the pain 0/10 in severity. Symptoms aggravated by nothing. Symptoms alleviated by nothing. Pt reports nausea, but denies ABD pain. - History Of Current Complaint Chief Complaint: EDPsychosocial Time Seen by Provider: 10/12/18 14:49 Hx Obtained From: Patient Onset/Duration: Sudden Onset, Lasting Days - vaginal herpes outbreak began 2 days ago, Lasting Weeks - depression began 1 week ago, Still Present Timing: Constant, Days - vaginal herpes outbreak began 2 days ago, Weeks - depression began 1 week ago Severity Currently: None Aggravating Factor(s): nothing Alleviating Factor(s): nothing Associated Signs And Symptoms: Positive: Nausea, Other - positive - depression, burning sensation and lesions around her vagina. negative - suicidal plan,. Negative: Abdominal Pain - Allergies/Home Medications Allergies/Adverse Reactions: Allergies Allergy/AdvReac Type Severity Reaction Status Date / Time orange juice Allergy Intermediate Swelling Verified 10/12/18 14:20 Of Face,Lips,& Throat PMH/Surg Hx/FS Hx/Imm Hx Previously Healthy: No Endocrine/Hematology History: Denies: Hx Anticoagulant Therapy, Hx Blood Disorders Respiratory History: Denies: Hx Asthma History: Denies: Other Problems/Disorders Sensory History: Reports: Hx Contacts or Glasses Opthamlomology History: Reports: Hx Contacts or Glasses Psychiatric History: Reports: Hx Anxiety, Hx Attention Deficit Hyperactivity Disorder, Hx Depression, Hx Bipolar Disorder - Not currently taking medications , Other Psychiatric Issues/Disorders - Bipolar, ADHD Denies: Hx Eating Disorder, Hx of Violent Episodes Against Others - Surgical History Surgical History: None - Immunization History Date of Tetanus Vaccine: Up to Date Infectious Disease History: No Infectious Disease History: Denies: History Other Infectious Disease, Traveled Outside the [place] in Last 30 Days - Family History Known Family History: Positive: Other - Heroin dependency Family History: Heroin dependency - Social History Alcohol Use: None Hx Substance Use: No Substance Use Type: Reports: None Substance Use Comment - Amount & Last Used: +02/2018 per records Hx Tobacco Use: Yes Smoking Status (MU): Former Smoker Type: Cigarettes Amount Used/How Often: 1cig /week Have You Smoked in the Last Year: Yes Review of Systems Positive: Nausea. Negative: Abdominal Pain Skin: Other - positive - Burning sensation and lesions around her vagina Psychological: Other - negative - suicidal plan Positive: Depressed - worsening since 1 week ago All Other Systems Reviewed And Are Negative: Yes Physical Exam - Summary Physical Exam Summary: Constitutional: Well-developed, Well-nourished, Alert. (-) Distressed Skin: Warm, Dry HENT: Normocephalic; Atraumatic Eyes: Conjunctiva normal Neck: Musculoskeletal ROM normal neck. (-) JVD, (-) Stridor, (-) Nuchal rigidity Cardio: Rhythm regular, rate normal, Heart sounds normal; Intact distal pulses; Radial pulses are 2+ and symmetric. (-) Murmur Pulmonary/Chest wall: Effort normal. (-) Respiratory distress, (-) Wheezes, (-) Rales Abd: Soft, (-) tenderness, (-) Distension, (-) Guarding, (-) Rebound : External Exam: normal labia, no masses, lacerations. red superficial ulcerations to perineum c/w HSV Musculoskeletal: (-) Edema Lymph: (-) Cervical adenopathy Neuro: Alert, Oriented x3 Psych: depressed, passive suicidal ideation Triage Information Reviewed: Yes Vital Signs On Initial Exam: Initial Vitals Temp Pulse Resp BP Pulse Ox 99.1 F 90 18 135/86 99 10/12/18 14:15 10/12/18 14:15 10/12/18 14:15 10/12/18 14:15 10/12/18 14:15 Vital Signs Reviewed: Yes Diagnostics - Vital Signs Vital Signs Temp Pulse Resp BP Pulse Ox 10/12/18 14:15 99.1 F 90 18 135/86 99 - Laboratory Result Diagrams: 10/12/18 14:58 10/12/18 14:58 Lab Statement: Any lab studies that have been ordered have been reviewed, and results considered in the medical decision making process. Re-Evaluation - Re-Evaluation First Eval Re-Evaluation Time: 16:40 Comment: Patient was medically cleared for [facility], pmo consultant in room at present. Complex Multi-Symp Course/Dx Course Of Treatment: 23-year-old female presents with depression and passive suicidal ideation. Patient states she is . No OB complaints aside from painful lesions to the vaginal introitus c/w HSV . Will give acyclovir 400 TID for 10 days. - Diagnoses Provider Diagnoses: Post depression, Herpes, UTI (urinary tract infection) - Physician Notifications Discussed Care Of Patient With: Ravi Bentley Time Discussed With Above Provider: 17:22 Instructed by Provider To: Other - 1722 - pmo consultant [place] reports that the patient's case was reviewed by Dr. Bentley, patient to be discharged to home with [facility] follow up in a week and prescriptions. Discharge - Sign-Out/Discharge Documenting (check all that apply): Patient Departure - discharge Patient Received Moderate/Deep Sedation with Procedure: No - Discharge Plan Condition: Stable Disposition: HOME Prescriptions: Acyclovir* [Zovirax 400 MG TAB*] 400 mg PO TID 10 Days #30 tab Cephalexin CAP* [Keflex CAP*] 500 mg PO BID 5 Days #10 cap Patient Education Materials: Depression (DC), Urinary Tract Infection in Women (ED), Suicide Prevention (ED) Referrals: [facility] [Outside] (Follow up appointment scheduled for Thursday October 18, 2018 at 1:15pm with Adeline.) Monique Hernandez CNM [Certified Nurse College Tutor] - (Please schedule a follow up appointment as soon as possible) No Primary Care Phys,NOPCP [Primary Care Provider] - - Billing Disposition and Condition Condition: STABLE Disposition: Home - Attestation Statements Document Initiated by Scribe: Yes Documenting Scribe: Kris Ortiz Provider For Whom Varsha is Documenting (Include Credential): Dr. Patti He MD Scribe Attestation: Kris Villagomez, scribed for Dr. Patti He MD on 10/12 at 1926. Scribe Documentation Reviewed: Yes Provider Attestation: The documentation as recorded by the scribe, Kris Cisneros and Shalom Kolenda accurately reflects the service I personally performed and the decisions made by me, Dr. Patti He MD Status of Scribe Document: Viewed
[2018-10-12 15:30] LABS: ABS Basophils 0.1 10^3/ul (0-0.2); ABS Eosinophils 0.1 10^3/ul (0-0.6); ABS Lymphocytes 1.9 10^3/ul (1.0-4.8); ABS Monocytes 0.8 10^3/ul (0-0.8); ABS Neutrophils 9.1 10^3/ul (1.5-7.7); Eosinophil % 0.5 %; Hematocrit 38 % (35-47); Hemoglobin 12.7 g/dL (12.0-16.0); Mean Corpuscular HGB Conc 33 g/dL (31-36); Mean Corpuscular Hemoglobin 25 pg (27-31); Mean Corpuscular Volume 74 fL (80-97); Mean Platelet Volume 8.5 fL (7.4-10.4); Nucleated Red Blood Cells % 0.1; Platelet Count 383 10^3/uL (150-450); Red Blood Count 5.17 10^6 /uL (3.70-4.87); Red Cell Distribution Width 16 % (10-15); White Blood Count 11.9 10^3/uL (3.5-10.8)
[2018-10-12 16:07] LABS: ALT 12 U/L (7-52); AST 10 U/L (13-39); Albumin 4.2 g/dL (3.2-5.2); Albumin/Globulin Ratio 1.4 (1-3); Alkaline Phosphatase 75 U/L (34-104); Anion Gap 9 mmol/L (2-11); BUN/Creatinine Ratio 12.1 (8-20); Blood Urea Nitrogen 7 mg/dL (6-24); CO2 Carbon Dioxide 23 mmol/L (22-32); Calcium 9.6 mg/dL (8.6-10.3); Chloride 104 mmol/L (101-111); EGFR African American 157.3 (>60); Glucose 93 mg/dL (70-100); Potassium 3.5 mmol/L (3.5-5.0); Sodium 136 mmol/L (135-145); Total Protein 7.2 g/dL (6.4-8.9)
[2018-10-12 16:25] LABS: Acetaminophen < 15 mcg/mL; Alcohol < 10 mg/dL (<10); Salicylate < 2.50 mg/dL (<30)
[2018-10-12 16:27] LABS: Urine Appearance Cloudy; Urine Bacteria Absent (Absent); Urine Bilirubin Negative (Negative); Urine Blood Negative (Negative); Urine Color Yellow; Urine Glucose Negative (Negative); Urine Ketones Negative (Negative); Urine Nitrite Negative (Negative); Urine Protein 1+(30 mg/dL) (Negative); Urine Red Blood Cell Absent (Absent); Urine Specific Gravity 1.032 (1.010-1.030); Urine Squamous Epithelial Cell Present (Absent); Urine Transitional Epithelial Present (Absent); Urine Urobilinogen Negative (Negative); Urine White Blood Cell 3+(>20/hpf) (Absent)
[2018-10-12 16:51] LABS: Urine Benzodiazepine Screen None Detected (None Detect); Urine Opiates Screen None Detected (None Detect)
[2018-10-12] MEDS ORDERED: Cephalexin CAP* 500 MG PO ONE (16:54)
[2018-10-12 17:41] VITALS: BP 134/76
== END 2018-10-12 17:43 | disposition home or self-care (01) ==
LOC: ED 14:12
DX: O99.345 Other mental disorders complicating the puerperium (principal); F53.0 Postpartum depression; B00.9 Herpesviral infection, unspecified; N39.0 Urinary tract infection, site not specified; F41.9 Anxiety disorder, unspecified; F90.9 Attention-deficit hyperactivity disorder, unspecified type; Z87.891 Personal history of nicotine dependence
CPT/HCPCS: 36415; 80053; 80307; 80320; 80329; 81003; 81015; 84443; 84702; 85025; 87086; 99285; A9270-GY; G0480

== ENCOUNTER 2019-03-05 12:00 | Emergency (ER) | payer MEDICAID ==
[2019-03-05] MEDS ORDERED: Lidocaine 1% MPF ** 5 ML VIAL INJ ONE (12:32)
--- NOTE | 2019-03-05 13:12 | ED ---
Upper Extremity Pain - HPI Summary HPI Summary: Pt. is a 23 y.o female who presents to the ER for a finger and ankle injury that occurred one week ago. Pt. states she slipped last week and landed onto left second digit and twisted left ankle. No other injuries sustained. Movement makes sxs worse. Rest makes sxs better. - History of Current Complaint Chief Complaint: EDFall Stated Complaint: LEFT HAND/ANKLE INJURY PER PT Time Seen by Provider: 03/05/19 12:17 Hx Obtained From: Patient Hx Last Menstrual Period: 08/19/18 - Allergies/Home Medications Allergies/Adverse Reactions: Allergies Allergy/AdvReac Type Severity Reaction Status Date / Time orange juice Allergy Intermediate Swelling Verified 03/05/19 12:06 Of Face,Lips,& Throat PMH/Surg Hx/FS Hx/Imm Hx Previously Healthy: Yes Endocrine/Hematology History: Denies: Hx Anticoagulant Therapy, Hx Blood Disorders Respiratory History: Denies: Hx Asthma History: Denies: Other Problems/Disorders Sensory History: Reports: Hx Contacts or Glasses Opthamlomology History: Reports: Hx Contacts or Glasses Psychiatric History: Reports: Hx Anxiety, Hx Attention Deficit Hyperactivity Disorder, Hx Depression, Hx Bipolar Disorder - Not currently taking medications , Other Psychiatric Issues/Disorders - Bipolar, ADHD Denies: Hx Eating Disorder, Hx of Violent Episodes Against Others - Immunization History Date of Tetanus Vaccine: Up to Date Infectious Disease History: No Infectious Disease History: Denies: History Other Infectious Disease, Traveled Outside the [place] in Last 30 Days - Family History Known Family History: Positive: Unknown - pt denies knowledge of family medical history, Other - Heroin dependency, Non-Contributory Family History: Heroin dependency - Social History Occupation: Employed Full-time Lives: With Family Alcohol Use: None Hx Substance Use: No Substance Use Type: Reports: None Substance Use Comment - Amount & Last Used: +02/2018 per records Hx Tobacco Use: Yes Smoking Status (MU): Former Smoker Type: Cigarettes Amount Used/How Often: 1cig /week Have You Smoked in the Last Year: Yes Review of Systems Positive: Other - left ankle pain and left second digit of hand Skin: Negative Neurological: Negative Negative: Weakness, Paresthesia, Numbness All Other Systems Reviewed And Are Negative: Yes Physical Exam Triage Information Reviewed: Yes Vital Signs On Initial Exam: Initial Vitals Temp Pulse Resp BP Pulse Ox 99.1 F 90 16 158/116 100 12/22/19 12:02 03/05/19 12:02 03/05/19 12:02 03/05/19 12:02 03/05/19 12:02 Vital Signs Reviewed: Yes Appearance: Positive: Well-Appearing - Pt. sitting on bed in NAD. Pleasant. Skin: Positive: Warm, Dry Head/Face: Positive: Normal Head/Face Inspection Eyes: Positive: Normal, EOMI Neck: Positive: Supple Musculoskeletal: Positive: Other - Mild edema and pain over lateral left malleolus. Mild diffuse pain to dorsum of foot. Good pedal pulse. Achilles tendon intact. Deformity noted at the PIP joint of the second digit of left hand. No breaks in skin. Pt. unable to flex at the PIP or DIP joint. Neurological: Positive: Normal, CN Intact II-III Psychiatric: Positive: Affect/Mood Appropriate Procedures - Sedation Patient Received Moderate/Deep Sedation with Procedure: No - Splinting Left Lower Extremity Pre-Made Type: aircast Pre-Proc Neuro Vasc Exam: normal Post-Proc Neuro Vasc Exam: normal Splint Applied by Provider: Jose Antonio Torres Left 2nd Digit Pre-Made Type: finger splint Pre-Proc Neuro Vasc Exam: normal Post-Proc Neuro Vasc Exam: normal Splint Applied by Provider: Jose Antonio Torres Diagnostics - Vital Signs Vital Signs Temp Pulse Resp BP Pulse Ox 03/05/19 12:02 99.1 F 90 16 158/116 100 - Laboratory Lab Statement: Any lab studies that have been ordered have been reviewed, and results considered in the medical decision making process. Course/Dx - Course Course Of Treatment: Pt. with finger and ankle injury x 1 week. Ankle and foot xray negative per radiology. Hand xray per radiology: IMPRESSION: FRACTURE OF THE HEAD OF THE PROXIMAL PHALANX OF THE SECOND DIGIT. Results discussed with pt. Concerning for tendon injury given deformity of digit and inability to flex digit. Splints placed. Pt. to call ortho. tomorrow for a close f.u apt. To ice and elevate. Tylenol or motrin for pain as directed. Pt. understands and agrees with plan. - Diagnoses Differential Diagnosis/HQI/PQRI: Positive: Contusion, Fracture (Closed), Strain , Sprain Provider Diagnoses: Ankle sprain, Finger fracture Discharge ED - Sign-Out/Discharge Documenting (check all that apply): Patient Departure - Discharge Plan Condition: Good Disposition: HOME Patient Education Materials: Ankle Sprain (ED), Finger Fracture (ED) Forms: *Work Release Referrals: Moris Barlow MD [Medical Doctor] - Additional Instructions: Call the orthopedic clinic tomorrow for a follow up appointment for your finger fracture Wear splint Ice and elevate Tylenol or Motrin for pain as directed Return to ER if symptoms change or worsen - Billing Disposition and Condition Condition: GOOD Disposition: Home - Attestation Statements Provider Attestation: I was available for consult. This patient was seen by the [facility]. The patient was not presented to, seen by, or examined by me. Orlando Mercado MD
[2019-03-05 13:19] VITALS: BP 138/71
== END 2019-03-05 13:18 | disposition home or self-care (01) ==
LOC: ED 12:00
DX: S62.611A Displaced fracture of proximal phalanx of left index finger, initial encounter for closed fracture (principal); S93.402A Sprain of unspecified ligament of left ankle, initial encounter; W01.0XXA Fall on same level from slipping, tripping and stumbling without subsequent striking against object, initial encounter; Y92.9 Unspecified place or not applicable; F41.9 Anxiety disorder, unspecified; F90.9 Attention-deficit hyperactivity disorder, unspecified type; F31.9 Bipolar disorder, unspecified; Z87.891 Personal history of nicotine dependence
CPT/HCPCS: 99281

== ENCOUNTER 2019-03-19 04:04 | Emergency (ER) | payer MEDICAID, OTHER ==
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
[2019-03-19 10:59] VITALS: BP 00/00
== END 2019-03-19 10:57 | disposition home or self-care (01) ==
LOC: ED 04:04
DX: T74.21XA Adult sexual abuse, confirmed, initial encounter (principal); Y07.9 Unspecified perpetrator of maltreatment and neglect; Y92.002 Bathroom of unspecified non-institutional (private) residence as the place of occurrence of the external cause; S62.611D Displaced fracture of proximal phalanx of left index finger, subsequent encounter for fracture with routine healing; X58.XXXD Exposure to other specified factors, subsequent encounter; F41.9 Anxiety disorder, unspecified; F90.9 Attention-deficit hyperactivity disorder, unspecified type; F31.9 Bipolar disorder, unspecified; Z87.891 Personal history of nicotine dependence
CPT/HCPCS: 99283

== ENCOUNTER 2019-04-04 09:47 | Day surgery (SDC) | payer MEDICAID ==
--- NOTE | 2019-04-02 13:33 | HP ---
PREOPERATIVE HISTORY AND PHYSICAL: DATE OF ADMISSION/SURGERY: 04/04/19 DATE OF OFFICE VISIT/ENCOUNTER: 03/30/19 ATTENDING SURGEON: Emerita Jones MD * (DICTATED BY MARC HERRERA) PROCEDURE: Open reduction and internal fixation, left index finger proximal phalanx. HISTORY OF PRESENT ILLNESS: This is a 23-year-old female who injured her left index finger on 02/23/19 when she fell and landed on her left hand. She was seen at [facility] Emergency Room and had x-rays that showed a fracture of the proximal phalanx at the PIP joint. She suffered a second injury on 03/18/19 and had repeat x-rays. Fracture shown on both films and is shown to be displaced and her finger is crooked. She would like to have her finger straightened. She denies any associated numbness or tingling and there was no other injury. This is her nondominant hand. She had consented to proceed with surgical intervention. PAST MEDICAL HISTORY: Depression/anxiety. PAST SURGICAL HISTORY: Pilonidal cyst excision. MEDICATIONS: Wellbutrin SR 150 mg daily. ALLERGIES: No known drug allergies. FAMILY MEDICAL HISTORY: Stroke, hypertension. SOCIAL HISTORY: The patient has been studying to become a RESIDENTIAL SUBCONTRACTOR, but has put that on hold secondary to this injury. She has worked at [employer] in the past. She is a current smoker approximately 10 cigarettes per day for the past 6 years. She denies recreational drug use and does not drink alcohol. REVIEW OF SYSTEMS: Negative for general, cephalic, cardiovascular, respiratory , GI, , other musculoskeletal, integumentary, endocrine, neurologic, and hematologic symptoms. Infectious Disease: Negative for MRSA, hepatitis C, HIV. PHYSICAL EXAMINATION GENERAL: A well-developed, well-nourished 23-year-old female, in no acute distress. VITAL SIGNS: Height 5 feet 6 inches, weight 210 pounds. Pulse rate 84, blood pressure 124/80. HEENT: Normocephalic, atraumatic. Pupils are equal, round, and reactive to light and accommodation. Extraocular movements are intact. Throat is clear. NECK: Supple. No palpable lymph nodes. PULMONARY: Lungs are clear to auscultation bilaterally. No wheezes, rales, or rhonchi. CARDIOVASCULAR: Regular rate and rhythm. S1, S2. No murmurs, rubs, or gallops. No edema. ABDOMEN: Positive bowel sounds. Soft, nontender. NEUROLOGICAL: Alert and oriented x3. Cranial nerves II through XII are intact. Sensation is intact to light touch. MUSCULOSKELETAL: On exam of her left index finger, she has an angular deformity of the finger toward the middle finger and when she flexes her finger there is an underlapping. She cannot fully extend the finger. There is moderate swelling at the PIP joint. Skin is intact. Neurovascular function is intact. DIAGNOSTIC STUDIES: Most recent x-rays show the fracture of the proximal phalanx to be mostly healed, but in a displaced position and intraarticular. IMPRESSION: Malunion of the left index finger proximal phalanx with displacement. PLAN: The patient is scheduled to undergo an open reduction and internal fixation of the left index finger proximal phalanx on 04/04/19. She will return to the office 10 days postop for followup and suture removal. A prescription for [place] was e-scribed to the patient's pharmacy for postoperative pain management. MARC HERRERA [id number]/[facility] #: [id number] FELICITA
[~2019-04-04 09:47] MED LIST: Buffered Lidocaine 1% SYRIN* 1 ML/SYRINGE INTRADERM ONE; Lactated Ringers 1000 ML Bag* 1,000 ML IV SCH
[2019-04-04] MEDS ORDERED: ceFAZolin 2 GM PREMIX in ORs 2 GM/50 ML BAG ONE ×2 (10:21)
[2019-04-04] MEDS ORDERED: fentaNYL* 50 MCG/ML 2 ML VIAL (100 MCG VIAL) ONE ×2 (11:20)
[2019-04-04] MEDS ORDERED: Midazolam* 1 MG/ML 2 ML VIAL (2 MG) ONE ×2 (11:21)
[2019-04-04] MEDS ORDERED: Lidocaine 1% INJ* 10 MG/ML 30 ML SDV ONE ×2 (11:39)
[2019-04-04] MEDS ORDERED: Propofol* 10 MG/ML 20 ML BTL ONE ×2 (11:50)
[2019-04-04] MEDS ORDERED: Lidocaine 2% PF * 5 ML VIAL ONE ×2 (11:50)
[2019-04-04] MEDS ORDERED: Ketorolac INJ* 30 MG/ML 1 ML VIAL ONE ×2 (11:50)
[2019-04-04] MEDS ORDERED: Ondansetron INJ* 2 MG/ML VIAL ONE ×2 (11:58)
[2019-04-04] MEDS ORDERED: Dexamethasone IV* 4 MG/ML 1 ML (4 MG) ONE ×2 (11:58)
[2019-04-04] MEDS ORDERED: diPHENhydraMINE IV* 50 MG/ML 1 ml VIAL (BENADRYL) IV PRN (12:08)
[2019-04-04] MEDS ORDERED: Acetaminophen TAB* 325 MG PO PRN (12:08)
[2019-04-04] MEDS ORDERED: DiMENhydriNATE IV* 50 MG/ML VIAL IV PUSH PRN (12:08)
[2019-04-04] MEDS ORDERED: Levalbuterol 0.63MG/3ML NEB* UNIT OF USE INH PRN (12:08)
[2019-04-04] MEDS ORDERED: fentaNYL* 50 MCG/ML 2 ML VIAL (100 MCG VIAL) IV PRN (12:08)
[2019-04-04] MEDS ORDERED: Naloxone* 0.4 MG/ML 1 ML VIAL IV PRN (12:08)
[2019-04-04] MEDS ORDERED: HYDROcodone/ACETAMIN 5-325 MG* 1 TAB PO PRN (12:08)
[2019-04-04] MEDS ORDERED: Ondansetron INJ* 2 MG/ML VIAL IV PRN (12:08)
[2019-04-04 13:16] VITALS: BP 131/68
--- NOTE | 2019-04-04 20:55 | OP ---
DATE OF OPERATION: 04/04/19 [facility] DATE OF : [birth year] SURGEON: Emerita Jones MD EXPENSE CLERK: MARC Singh ANESTHESIA: Local MAC. PRE-OP DIAGNOSIS: Left index finger proximal phalanx fracture, which is displaced. POST-OP DIAGNOSIS: Left index finger proximal phalanx fracture, which is displaced. OPERATIVE PROCEDURE: Open reduction and pinning of the left index finger proximal phalanx. ESTIMATED BLOOD LOSS: Zero. TOURNIQUET TIME: About 15 minutes. INDICATIONS FOR PROCEDURE: Patti is a 23-year-old female who suffered a fracture of her left index finger about 5 weeks ago. She has an angular deformity of the finger at the PIP joint and x-ray shows a displaced fracture intercondylar of the proximal phalanx. She presents for open reduction and pinning. DESCRIPTION OF PROCEDURE: The patient was brought to the operating room, was given a sedation anesthetic and a digital block with 10 cc of 1% plain lidocaine. The skin of her left upper extremity was prepped and draped in the usual sterile fashion. The hand and forearm were exsanguinated and the tourniquet elevated to 250 mmHg. A dorsal longitudinal incision was made on the dorsal aspect of the index finger. We raised full-thickness skin flaps above the extensor tendon. We then incised on the ulnar aspect of the extensor tendon to gain access to the fracture fragments. The fracture was carefully debrided of the healing callus and then we were able to reduce the fracture fragments. On AP and lateral view on the C-arm, we could see the articular surface was reduced and clinically the finger was well aligned. We then used three 0.035-inch K-wires to secure the two fracture fragments together. The position of the hardware and fracture fragments was checked on the C-arm in the AP and lateral views and found to be satisfactory. The wound was irrigated with saline. The skin edges were reapproximated with 4-0 nylon suture. The pins were cut and then dressed with Xeroform, 4x4, Webril, and AlumaFoam splint. The patient tolerated the procedure well and was brought to the recovery room in good condition. [id number]/[facility] #: [id number] [facility]ITAL[facility]
== END 2019-04-04 13:14 | disposition home or self-care (01) ==
LOC: OREAST 09:47
PROVIDERS: ATTEND Orthopaedic Surgery
DX: S62.611A Displaced fracture of proximal phalanx of left index finger, initial encounter for closed fracture (principal); F41.8 Other specified anxiety disorders; W19.XXXA Unspecified fall, initial encounter; Y92.9 Unspecified place or not applicable; F17.210 Nicotine dependence, cigarettes, uncomplicated
CPT/HCPCS: 76000; 81025; C1776; J0690; J1100; J1885; J2250; J2405; J2704; J3010

== ENCOUNTER 2019-07-01 15:27 | Inpatient (IN) ==
[2019-07-01] MEDS ORDERED: NS 0.9% 1000 ml BAG 1,000 ML IV ONE (15:42)
[2019-07-01] MEDS ORDERED: Ondansetron 4 mg VIAL 2 MG/ML 2 ml VIAL IV ONE (15:42)
[2019-07-01 16:29] LABS: ABS Basophils 0.1 10^3/ul (0-0.2); ABS Lymphocytes 2.1 10^3/ul (1.0-4.8); ABS Monocytes 0.8 10^3/ul (0-0.8); Eosinophil % 0.3 %; Hematocrit 40 % (35-47); Hemoglobin 13.4 g/dL (12.0-16.0); Lymphocyte % 22.3 %; Mean Corpuscular HGB Conc 34 g/dL (31-36); Mean Corpuscular Hemoglobin 26 pg (27-31); Mean Corpuscular Volume 77 fL (80-97); Mean Platelet Volume 8.3 fL (7.4-10.4); Nucleated Red Blood Cells % 0.1; Platelet Count 432 10^3/uL (150-450); Red Blood Count 5.18 10^6 /uL (3.70-4.87); Red Cell Distribution Width 15 % (10-15); White Blood Count 9.2 10^3/uL (3.5-10.8)
[2019-07-01 16:47] LABS: ALT 14 U/L (7-52); AST 15 U/L (13-39); Albumin 4.7 g/dL (3.2-5.2); Albumin/Globulin Ratio 1.6 (1-3); Alkaline Phosphatase 69 U/L (34-104); Anion Gap 9 mmol/L (2-11); BUN/Creatinine Ratio 10.1 (8-20); Blood Urea Nitrogen 8 mg/dL (6-24); CO2 Carbon Dioxide 22 mmol/L (22-32); Calcium 9.6 mg/dL (8.6-10.3); Chloride 103 mmol/L (101-111); EGFR African American 110.1 (>60); Glucose 91 mg/dL (70-100); Potassium 3.3 mmol/L (3.5-5.0); Sodium 134 mmol/L (135-145); Total Protein 7.7 g/dL (6.4-8.9)
[2019-07-01 16:48] LABS: Acetaminophen < 15 mcg/mL; Alcohol, S < 10 mg/dL (<10); Salicylate < 2.50 mg/dL (<30)
[2019-07-01] MEDS ORDERED: Potassium Chloride LIQUID 20 MEQ/15 ML LIQUID PO ONE (17:34)
[2019-07-01 17:59] LABS: Urine Benzodiazepine Screen None Detected (None Detect); Urine Opiates Screen None Detected (None Detect)
[2019-07-01 18:00] LABS: Urine Appearance Cloudy; Urine Bilirubin Negative (Negative); Urine Blood 1+ (Negative); Urine Color Yellow; Urine Glucose Negative (Negative); Urine Ketones 1+ (Negative); Urine Nitrite Negative (Negative); Urine Protein Negative (Negative); Urine Specific Gravity 1.017 (1.010-1.030); Urine Urobilinogen Negative (Negative)
[2019-07-01 18:03] LABS: Urine Bacteria Absent (Absent); Urine Red Blood Cell 1+(3-5/hpf) (Absent); Urine Squamous Epithelial Cell Present (Absent); Urine White Blood Cell 1+(6-10/hpf) (Absent)
[2019-07-01 18:27] LABS: HIV 4th Generation Nonreactive (Nonreactive)
[2019-07-02] MEDS ORDERED: Al Hydrox/Mg Hydrox/Simet LIQ 30 ML UDC PO PRN (00:21)
[2019-07-02] MEDS: Vitamin THERAPEUTIC TAB PO SCH (16:12)
[2019-07-03 07:53] LABS: BUN/Creatinine Ratio 13.1 (8-20); Calcium 8.9 mg/dL (8.6-10.3); EGFR African American 148.4 (>60); EGFR Non-African American 122.6 (>60); Potassium 3.9 mmol/L (3.5-5.0)
[2019-07-03] MEDS: Vitamin THERAPEUTIC TAB PO SCH (11:38)
[2019-07-03 13:48] LABS: Chlamydia trachomatis NAA Positive (Negative); Neisseria gonorrhoeae (GC) NAA Negative (Negative)
[2019-07-04] MEDS: Vitamin THERAPEUTIC TAB PO SCH (07:53)
[2019-07-05] MEDS: Vitamin THERAPEUTIC TAB PO SCH (09:04)
[2019-07-06] MEDS: Vitamin THERAPEUTIC TAB PO SCH (08:41)
[2019-07-06] MEDS: Nicotine GUM 2MG FRUIT FLAVOR PO PRN (21:20)
[2019-07-07] MEDS: Vitamin THERAPEUTIC TAB PO SCH (08:36)
[2019-07-07] MEDS: Nicotine GUM 2MG FRUIT FLAVOR PO PRN ×4 (08:39→20:39)
[2019-07-08] MEDS: Vitamin THERAPEUTIC TAB PO SCH (09:10)
[2019-07-08] MEDS: Nicotine GUM 2MG FRUIT FLAVOR PO PRN ×3 (09:13→18:47)
[2019-07-09] MEDS: Vitamin THERAPEUTIC TAB PO SCH (08:27)
[2019-07-09] MEDS: Nicotine GUM 2MG FRUIT FLAVOR PO PRN ×3 (08:29→19:33)
[2019-07-10] MEDS: Nicotine GUM 2MG FRUIT FLAVOR PO PRN ×3 (08:54→18:47)
[2019-07-10] MEDS: Vitamin THERAPEUTIC TAB PO SCH (08:55)
[2019-07-11] MEDS: Nicotine GUM 2MG FRUIT FLAVOR PO PRN ×3 (09:05→18:23)
[2019-07-12 08:49] VITALS: BP 117/62
== END 2019-07-12 08:30 | DRG 566 ==
LOC: ED 15:27 → BSU 22:00 → ED 22:46 → UNDOADMIN 07-02 00:04 → BSU 07-02 00:04
PROVIDERS: ADMIT Psychiatry & Neurology Psychiatry; ATTEND Psychiatry & Neurology Psychiatry

== ENCOUNTER 2020-12-19 08:04 | Inpatient (IN) ==
[2020-12-19] MEDS ORDERED: Buffered Lidocaine 1% SYRIN 1 ml INTRADERM ONE (09:16)
[2020-12-19] MEDS ORDERED: Lactated Ringers 1000 ml BAG 1,000 ML IV ONE (09:20)
[2020-12-19 09:48] LABS: ABS Eosinophils 0.1 10^3/ul (0-0.6); ABS Lymphocytes 1.5 10^3/ul (1.0-4.8); ABS Monocytes 0.5 10^3/ul (0-0.8); ABS Neutrophils 6.2 10^3/ul (1.5-7.7); Eosinophil % 0.7 %; Hematocrit 29 % (35-47); Hemoglobin 9.8 g/dL (12.0-16.0); Lymphocyte % 17.8 %; Mean Corpuscular HGB Conc 34 g/dL (31-36); Mean Corpuscular Hemoglobin 26 pg (27-31); Mean Corpuscular Volume 77 fL (80-97); Mean Platelet Volume 8.6 fL (7.4-10.4); Platelet Count 275 10^3/uL (150-450); Red Blood Count 3.77 10^6 /uL (3.70-4.87); Red Cell Distribution Width 15 % (10-15); White Blood Count 8.3 10^3/uL (3.5-10.8)
[2020-12-19 10:11] LABS: Urine Benzodiazepine Screen None Detected (None Detect); Urine Cannabinoids Screen Presumptive Positive (None Detect); Urine Opiates Screen None Detected (None Detect)
[2020-12-19 10:16] LABS: Albumin 3.4 g/dL (3.2-5.2); Albumin/Globulin Ratio 1.3 (1-3); Calcium 8.9 mg/dL (8.6-10.3); Globulin 2.6 g/dL (2-4); Potassium 3.6 mmol/L (3.5-5.0); Total Bilirubin 0.2 mg/dL (0.2-1.0); Uric Acid 4.1 mg/dL (2.3-6.6)
[2020-12-19] MEDS: Oxytocin in LR 20 UNITS/1,000 ML BAG IVPB SCH (10:16)
[2020-12-19 10:23] LABS: Rapid COVID-19 Molecular Undetected (Undetected)
[2020-12-19] MEDS: Lactated Ringers 1000 ml BAG 1,000 ML IV SCH ×2 (14:30→23:40)
[2020-12-19] MEDS: Calcium Carb (TUMS) 500 mg CHEW TAB PO PRN (23:37)
[2020-12-20] MEDS: Oxytocin in LR 20 UNITS/1,000 ML BAG IVPB SCH (12:15)
[2020-12-20] MEDS: Calcium Carb (TUMS) 500 mg CHEW TAB PO PRN (13:19)
[2020-12-20] MEDS ORDERED: Nalbuphine 10 MG/ML 1 ML VIAL IV ONE (15:03)
[2020-12-20] MEDS ORDERED: Promethazine INJ(RESTRICTED) 25 MG/ML 1 ml VIAL IV ONE (15:04)
[2020-12-20] MEDS: Promethazine INJ(RESTRICTED) 25 MG/ML 1 ml VIAL IV PRN (22:44)
[2020-12-20] MEDS: Nalbuphine 10 MG/ML 1 ML VIAL IV PRN (22:44)
[2020-12-21] MEDS: Promethazine INJ(RESTRICTED) 25 MG/ML 1 ml VIAL IV PRN (04:29)
[2020-12-21] MEDS: Nalbuphine 10 MG/ML 1 ML VIAL IV PRN (04:29)
[2020-12-21] MEDS ORDERED: Oxytocin in LR 20 UNITS/1,000 ML BAG IVPB SCH ×2 (09:00→12:00)
[2020-12-21] MEDS: Lactated Ringers 1000 ml BAG 1,000 ML IV SCH (10:05)
[2020-12-21] MEDS ORDERED: Dibucaine 1% OINT 28.35 GM TUBE PR PRN (12:00)
[2020-12-21] MEDS ORDERED: Glycerin ADULT 2.4 gm SUPP PR PRN (12:00)
[2020-12-21] MEDS: Witch Hazel PAD JAR TOPICAL PRN (12:29)
[2020-12-22] MEDS: Calcium Carb (TUMS) 500 mg CHEW TAB PO PRN ×2 (03:18→08:41)
[2020-12-22 09:49] LABS: Hematocrit 23 % (35-47); Hemoglobin 7.6 g/dL (12.0-16.0); Mean Corpuscular HGB Conc 33 g/dL (31-36); Mean Corpuscular Hemoglobin 26 pg (27-31); Mean Corpuscular Volume 77 fL (80-97); Mean Platelet Volume 8.6 fL (7.4-10.4); Platelet Count 241 10^3/uL (150-450); Red Blood Count 2.99 10^6 /uL (3.70-4.87); Red Cell Distribution Width 15 % (10-15); White Blood Count 12.5 10^3/uL (3.5-10.8)
[2020-12-22 09:56] LABS: ABS Eosinophils 0.1 10^3/ul (0-0.6); ABS Monocytes 0.5 10^3/ul (0-0.8); ABS Neutrophils 9.7 10^3/ul (1.5-7.7); Eosinophil % 0.4 %; Lymphocyte % 16.4 %
[2020-12-22] MEDS: Witch Hazel PAD JAR TOPICAL PRN (17:59)
[2020-12-23 07:31] VITALS: BP 149/67
== END 2020-12-23 11:30 | disposition home or self-care (01) | DRG 560 ==
LOC: MCHOBOUT 08:04 → MCHOB 08:31
PROVIDERS: ADMIT Midwife; ATTEND Midwife